=== PATIENT | female | born 1975 | race Caucasian/White ===

== ENCOUNTER 2017-10-08 18:24 | Inpatient (IN) | payer OTHER ==
[~2017-10-08] VITALS: Ht 165.1 cm; Wt 68.9 kg
--- NOTE | 2017-10-08 18:24 | NUR ---
BIB [facility] 87 FROM HOME, HEADACHE/NAUSEA AND VOMITING, NO RELIEF WITH IMITREX. ZOFRAN GIVEN IN FIELD. NAD NOTED. PT AAO X4, VSS. RR EVEN AND UNLABORED. PENDING MD HUTCHISON.
[2017-10-08] MEDS ORDERED: SUMA50TA PO (18:32)
--- NOTE | 2017-10-08 19:14 | NUR ---
RECEIVED REPORT FROM TRINO JONES FOR ELIAN
--- NOTE | 2017-10-08 19:20 | NUR ---
DR. ROSA AT BEDSIDE FOR EVAL.
[2017-10-08] MEDS ORDERED: IV NS 0.9% 1,000 ML BAG IV ONE (19:30)
[2017-10-08] MEDS ORDERED: diphenhydrAMINE HCL 50 MG/ML VIAL IV ONE (19:30)
[2017-10-08] MEDS ORDERED: PROCHLORPERAZINE EDISYLATE 10 MG/2 ML VIAL IV ONE (19:30)
[2017-10-08] MEDS ORDERED: PROCHLORPERAZINE EDISYLATE 10 MG/2 ML VIAL ONE (19:36)
[2017-10-08] MEDS ORDERED: diphenhydrAMINE HCL 50 MG/ML VIAL ONE (19:36)
--- NOTE | 2017-10-08 19:36 | NUR ---
DINA SANTOS AT BEDSIDE FOR EVAL.
[2017-10-08 19:49] LABS: BASOPHILS # (AUTO) 0.1 /CMM (0.0-0.2); BASOPHILS % (AUTO) 0.8 % (0.0-2.0); EOSINOPHILS % (AUTO) 0.9 % (0.0-6.0); HEMATOCRIT 47 % (33-45); HEMOGLOBIN 16.4 g/dL (11.5-14.8); LYMPHOCYTES % (AUTO) 11.7 % (20.0-44.0); MEAN CORPUSCULAR HGB CONC 35 g/dl (31.0-36.0); MEAN CORPUSCULAR VOLUME 82 fL (82-100); MONOCYTES # (AUTO) 0.2 /CMM (0.1-1.30); MONOCYTES % (AUTO) 2.7 % (2.0-12.0); NEUTROPHILS # (AUTO) 7.5 /CMM (1.8-8.9); NEUTROPHILS % (AUTO) 83.9 % (43.0-81.0); PLATELET COUNT (AUTO) 289 /CMM (150-450); WHITE BLOOD COUNT (AUTO) 8.9 K/uL (4.3-11.0)
--- NOTE | 2017-10-08 19:50 | NUR ---
PT TO CT.
--- NOTE | 2017-10-08 20:07 | NUR ---
PT RETURNED FROM CT.
[2017-10-08 20:08] LABS: CALCIUM, SERUM 9.3 mg/dL (8.5-10.1); CREATININE 0.9 mg/dL (0.6-1.3); POTASSIUM 3.5 mmol/L (3.5-5.1)
[2017-10-08] MEDS ORDERED: ONDANSETRON HCL/PF 4 MG/2 ML VIAL ONE (20:58)
[2017-10-08] MEDS ORDERED: MORPHINE SULFATE INJ 4 MG/ML DISP.SYRIN ONE ×2 (20:59)
[2017-10-08] MEDS ORDERED: ONDANSETRON HCL/PF 4 MG/2 ML VIAL IV ONE (21:00)
[2017-10-08] MEDS ORDERED: MORPHINE SULFATE INJ 2 MG/ML DISP.SYRIN IV ONE (21:00)
--- NOTE | 2017-10-08 21:15 | NUR ---
CALLED [facility] FOR PENDING CT
--- NOTE | 2017-10-08 21:41 | NUR ---
DR. ROSA / DINA SANTOS AT BEDSIDE SPEAKING TO PT REGARDING RESULTS/ POC
--- NOTE | 2017-10-08 21:55 | NUR ---
Called [facility] for a panel call and a page was sent out to Kathe Barnes.
--- NOTE | 2017-10-08 22:09 | NUR ---
PT IS ASSIGNED TO MED/SURG RM#: [id number], PT IS DIAGNOSED WITH SYNCOPE, AND NEFTALI VU IS THE ACCEPTING WET ROASTER
[2017-10-08] MEDS ORDERED: IV NS 0.9% 1,000 ML IV PRN (22:12)
--- NOTE | 2017-10-08 22:21 | NUR ---
REPORT GIVEN TO TRINO GARCIA FOR ELIAN
[2017-10-08] MEDS ORDERED: Z GUARD REMEDY 2 OZ OINT TP PRN (22:30)
[2017-10-08] MEDS ORDERED: PROCHLORPERAZINE MALEATE 10 MG TABLET PO PRN (22:30)
[2017-10-08] MEDS ORDERED: MAGNESIUM HYDROXIDE 30 ML UDC PO PRN (22:30)
[2017-10-08] MEDS ORDERED: ZOLPIDEM TARTRATE 5 MG TABLET PO PRN (22:30)
[2017-10-08] MEDS ORDERED: MORPHINE SULFATE INJ 2 MG/ML DISP.SYRIN IV PRN (22:30)
[2017-10-08] MEDS ORDERED: MAG HYDROX/AL HYDROX/SIMETH 30 ML UDC PO PRN (22:30)
[2017-10-08] MEDS ORDERED: ONDANSETRON HCL/PF 4 MG/2 ML VIAL IVP PRN (22:30)
[2017-10-08] MEDS ORDERED: ACETAMINOPHEN 325 MG TABLET PO PRN (22:30)
--- NOTE | 2017-10-08 22:35 | NUR ---
CALLED RN SUP FOR TELE BED.
--- NOTE | 2017-10-08 23:06 | NUR ---
PT ASSIGNED TO 304-1
--- NOTE | 2017-10-08 23:09 | NUR ---
DANIAL TATE RECEIVED REPORT FROM TRINO FONSECA.
--- NOTE | 2017-10-08 23:25 | NUR ---
PT TRANSFERRED VIA ACLS PROTOCOL.
[2017-10-08 23:30] VITALS: BP 137/87
--- NOTE | 2017-10-08 23:40 | NUR ---
LABOR MEDIATOR NOTE RECEIVED PATIENT FROM ER VIA VICTORIANO, ACCOMPANIED BY HER . PATIENT IS ALERT AND ORIENTEDX4, DENIES RESPIRATORY DISTRESS AND COMPLAINS OF HEADACHE, MEDS GIVEN AT ER ALREADY. IV ON LEFT AC 18G IS PATENT AND INTACT, WILL CONNECT TO FLUID. TELE MONITOR SB 58. SKIN IS INTACT, NO EDEMA NOTED. SRX2, BED IN LOW POSITION, CALL LIGHT WITHIN REACH, WILL CONTINUE TO MONITOR PATIENT.
[2017-10-09] MEDS ORDERED: MORPHINE SULFATE INJ 4 MG/ML DISP.SYRIN IV PRN (01:00)
[2017-10-09 04:00] VITALS: BP 111/67
--- NOTE | 2017-10-09 06:33 | NUR ---
JUNIOR PROGRAMMER ANALYST NOTE PATIENT IS SLEEPING IN BED COMFORTABLY, NO S/S OF RESPIRATORY DISTRESS AND NO COMPLAINS OF HEADACHE AFTER GETTING MORPHINE. IV ON LEFT AC IS PATENT AND INTACT, FLUID IS RUNNING. NO ACUTE EVENT NOTED SINCE ADMISSION. WILL ENDORSE TO DAY SHIFT NURSE FOR ELIAN.
[2017-10-09 06:43] LABS: BASOPHILS % (AUTO) 0.6 % (0.0-2.0); EOSINOPHILS % (AUTO) 1.9 % (0.0-6.0); HEMATOCRIT 42 % (33-45); HEMOGLOBIN 14.4 g/dL (11.5-14.8); LYMPHOCYTES # (AUTO) 1.9 /CMM (0.8-4.8); MEAN CORPUSCULAR HGB CONC 35 g/dl (31.0-36.0); MEAN CORPUSCULAR VOLUME 84 fL (82-100); MONOCYTES # (AUTO) 0.4 /CMM (0.1-1.30); MONOCYTES % (AUTO) 4.6 % (2.0-12.0); NEUTROPHILS # (AUTO) 5.8 /CMM (1.8-8.9); NEUTROPHILS % (AUTO) 69.9 % (43.0-81.0); PLATELET COUNT (AUTO) 264 /CMM (150-450); RDW COEFFICIENT OF VARIATION 13.1 (11.5-15.0); WHITE BLOOD COUNT (AUTO) 8.2 K/uL (4.3-11.0)
[2017-10-09 06:45] LABS: CALCIUM, SERUM 7.9 mg/dL (8.5-10.1); CREATININE 0.7 mg/dL (0.6-1.3); PHOSPHORUS 3.1 mg/dL (2.5-4.9); POTASSIUM 3.3 mmol/L (3.5-5.1)
[2017-10-09 07:00] LABS: THYROID STIMULATING HORMONE 1.906 uIU/mL (0.358-3.74)
[2017-10-09 08:00] VITALS: BP 106/60
--- NOTE | 2017-10-09 08:25 | NUR ---
PEDIATRIC DENTIST NOTES A/O X4, APPEARS ANXIOUS, PATIENT REQUESTING TO GO HOME TODAY, PER PATIENT ITS HIS SON'S BIRTHDAY TODAY. PATIENT REFUSING AM MEDICATION PROTONIX, EDUCATE AND TEACHING GIVEN TO THE PATIENT, RISK AND BENEFITS EXPLAINED TO PATIENT, PATIENT STILL REFUSED MEDICATION. SINUS RHYTHM HR 81 ON THE MONITOR. SAFETY PRECAUTION MAINTAINED. WILL CONT TO MONITOR.
[2017-10-09] MEDS ORDERED: FENTANYL PF 100MCG/2ML AMPUL IV PRN (08:30)
[2017-10-09] MEDS ORDERED: POTASSIUM CHLORIDE 20 MEQ TAB.PRT.SR PO SCH (09:00)
[2017-10-09] MEDS ORDERED: PANTOPRAZOLE 40 MG VIAL IV SCH (09:00)
--- NOTE | 2017-10-09 12:13 | NUR ---
MS CENTER DIRECTOR PATIENT HAS BEEN CLEARED FOR DC HOME BY MIK. PATIENT IS AMBULATORY, NO EPISODE OF SYNCOPE, DENIES HEADACHE. SKIN INTACT, IVC REMOVED IN LEFT AC, GAUZE APPLIED. DISCHARGE INSTRUCTION GIVEN TO THE PATIENT, VERBALIZED UNDERSTANDING. BELONGINGS CHECK AND SEND WITH THE PATIENT UPON DC. PATIENT LEFT HOSP IN STABLE CONDITION VIA PRIVATE CAR.
== END 2017-10-09 12:00 | disposition home or self-care (01) | DRG 641 ==
LOC: ER 18:27 → MEDSG2 22:17 → TELE 23:50 → MED 10-09 09:05
PROVIDERS: ADMIT Registered Nurse; ATTEND Registered Nurse
DX: E86.0 Dehydration (principal); A08.4 Viral intestinal infection, unspecified; M48.02 Spinal stenosis, cervical region; G43.909 Migraine, unspecified, not intractable, without status migrainosus; G89.29 Other chronic pain; E87.6 Hypokalemia; M19.90 Unspecified osteoarthritis, unspecified site; R55 Syncope and collapse
CPT/HCPCS: 36415; 70450-TC; 72125-TC; 80048-TC; 80061-TC; 83540-TC; 83735-TC; 84100-TC; 84443-TC; 84484-TC; 84703-TC; 85025-TC; 87081-TC; 93307-TC; 93880-TC; A4606; C9113; J0780; J1200; J2270; J2405; J3010; J7030; Z7610